=== PATIENT | female | born 2000 | race Caucasian/White ===

== ENCOUNTER 2023-10-05 14:37 | Emergency (ER) | payer MEDICAID ==
[~2023-10-05] VITALS: Ht 157.5 cm; Wt 79.5 kg
[2023-10-05 14:37] VITALS: BP 145/91; PULSE 96; TEMP 98.5; O2SAT 98
[2023-10-05] MEDS ORDERED: HYDR-3965 PO (16:17)
[2023-10-05] MEDS ORDERED: AMOX-117 PO (16:17)
[2023-10-05] MEDS: HYDROcodone/acetaminophen 5mg/325mg tablet PO ONE (16:20)
[2023-10-05 16:41] VITALS: RESP 18
== END 2023-10-05 16:42 | disposition home or self-care (01) ==
LOC: ER 14:37
DX: K04.7 Periapical abscess without sinus (principal); K00.6 Disturbances in tooth eruption; K08.89 Other specified disorders of teeth and supporting structures; Z79.2 Long term (current) use of antibiotics; Z79.899 Other long term (current) drug therapy
CPT/HCPCS: 99283